=== PATIENT | male | born 1990 | race African-American/Black ===

== ENCOUNTER 2016-12-10 04:21 | Emergency (ER) | payer MEDICARE, MEDICAID ==
[~2016-12-10] VITALS: Ht 177.8 cm; Wt 136.1 kg
[~2016-12-10 04:21] MED LIST: ALBUAER3 IN
[2016-12-10] MEDS ORDERED: methylPREDNISolone SOD SUCC 125 MG/2 ML VL IV ONE (04:45)
[2016-12-10 04:47] LABS: Basophils # (auto) 0 uL; Basophils % (auto) 0.6 % (0.0-2.0); DEFINITIVE VIEW TRANSMISSION; Eosinophils # (auto) 0.3 uL; Eosinophils % (auto) 4.3 % (0.0-7.0); Hematocrit 47.9 % (41.0-53.0); Hemoglobin 15.1 g/dL (13.5-17.5); Lymphocytes # (auto) 1.4 uL; Lymphocytes % (auto) 19.9 % (10.0-50.0); Mean Corpuscular Hemoglobin 24.4 pg (28.0-32.0); Mean Corpuscular Hgb Conc. 31.6 g/dL (32.0-36.0); Mean Corpuscular Volume 77.1 fL (80.0-100.0); Mean Platelet Volume 8.1 fL (7.4-10.4); Monocytes # (auto) 0.4 uL; Monocytes % (auto) 5.5 % (0.0-12.0); Neutrophils # (auto) 5.1 uL; Neutrophils % (auto) 69.7 % (37.0-80.0); Platelet Count (auto) 429 10^3/uL (140-450); Red Cell Distribution Width 15.4 % (11.6-16.0); White Blood Cell 7.3 10^3/uL (4.4-10.8)
[2016-12-10 05:03] LABS: Albumin 3.7 g/dL (3.4-5.0); BUN/Creatinine Ratio 8.1; Calcium 8.4 mg/dL (8.5-10.1); Potassium 4.4 mmol/L (3.5-5.1)
[2016-12-10 05:06] LABS: Bilirubin, Total 0.3 mg/dL (0.2-1.0); Total Protein 7.9 g/dL (6.4-8.2)
[2016-12-10] MEDS ORDERED: IPRATROPIUM BROM 0.5 MG/2.5ML INH SOL NEB ONE (05:15)
[2016-12-10] MEDS ORDERED: ALBUTEROL SULF 2.5 MG/0.5ML(0.5%) NEB SOLN NEB ONE ×2 (05:15→10:00)
[2016-12-10 09:10] VITALS: BP 116/69
[2016-12-10] MEDS ORDERED: ACETAMINOPHEN 325 MG TAB PO ONE (10:00)
== END 2016-12-10 10:55 | disposition home or self-care (01) ==
LOC: EDBD 04:21 → ER 04:24
DX: J45.901 Unspecified asthma with (acute) exacerbation (principal); E66.9 Obesity, unspecified; Z68.41 Body mass index [BMI] 40.0-44.9, adult; Z76.0 Encounter for issue of repeat prescription
CPT/HCPCS: 36415; 71010; 80053; 85025; 93005; 94640; 96374; 99285; J2930

== ENCOUNTER 2016-12-21 18:28 | Emergency (ER) | payer MEDICARE, MEDICAID ==
[~2016-12-21] VITALS: Ht 177.8 cm; Wt 129.3 kg
[2016-12-21 18:35] VITALS: BP 156/104
[2016-12-21] MEDS ORDERED: ALBUTEROL SULF 2.5 MG/0.5ML(0.5%) NEB SOLN NEB ONE (20:15)
[2016-12-21] MEDS ORDERED: methylPREDNISolone SOD SUCC 125 MG/2 ML VL IM ONE (20:15)
[2016-12-21] MEDS ORDERED: IPRATROPIUM BROM 0.5 MG/2.5ML INH SOL NEB ONE (20:15)
== END 2016-12-21 20:52 | disposition home or self-care (01) ==
LOC: ER 18:28
DX: J45.901 Unspecified asthma with (acute) exacerbation (principal)
CPT/HCPCS: 94640; 96372; 99283; J2930

== ENCOUNTER 2017-07-15 08:58 | Emergency (ER) | payer MEDICARE, MEDICAID ==
[~2017-07-15] VITALS: Ht 177.8 cm; Wt 127.0 kg
[~2017-07-15 08:58] MED LIST changes: +DOXY-216 PO
[2017-07-15 09:20] VITALS: BP 139/89
== END 2017-07-15 10:15 | disposition home or self-care (01) ==
LOC: ER 08:58
DX: J45.909 Unspecified asthma, uncomplicated (principal)

== ENCOUNTER 2018-05-06 07:18 | Emergency (ER) | payer MEDICARE, MEDICAID ==
[~2018-05-06] VITALS: Ht 177.8 cm; Wt 136.1 kg
[2018-05-06 07:26] VITALS: BP 124/84
[2018-05-06] MEDS ORDERED: KETOROLAC TROMETH 60MG/2ML VIAL IM ONE (07:45)
[2018-05-06] MEDS ORDERED: methylPREDNISolone SOD SUCC 125 MG/2 ML VL IM ONE (07:45)
== END 2018-05-06 08:13 | disposition home or self-care (01) ==
LOC: ER 07:20
DX: M10.9 Gout, unspecified (principal); J45.909 Unspecified asthma, uncomplicated
CPT/HCPCS: 96372; 99284; J1885; J2930

== ENCOUNTER 2018-09-07 10:22 | Emergency (ER) | payer MEDICARE, MEDICAID ==
[~2018-09-07] VITALS: Ht 177.8 cm; Wt 142.9 kg
[2018-09-07 11:20] LABS: Basophils # (auto) 0.1 uL; Mean Corpuscular Hemoglobin 24.5 pg (28.0-32.0); Monocytes # (auto) 0.9 uL; Neutrophils # (auto) 3.3 uL; Red Cell Distribution Width 15.8 % (11.8-14.3)
[2018-09-07 11:22] LABS: Basophils % (auto) 1.5 % (0.0-2.0); Eosinophils # (auto) 0.3 uL; Eosinophils % (auto) 4.6 % (0.0-7.0); Hematocrit 50.4 % (41.0-53.0); Hemoglobin 16.1 g/dL (13.5-17.5); Lymphocytes # (auto) 2.6 uL; Lymphocytes % (auto) 36.2 % (10.0-50.0); Mean Corpuscular Volume 76.7 fL (80.0-100.0); Neutrophils % (auto) 45.7 % (37.0-80.0); Platelet Count (auto) 400 10^3/uL (140-450); Red Blood Cells 6.58 10^6/uL (4.5-5.90); White Blood Cell 7.1 10^3/uL (4.4-10.8)
[2018-09-07 12:08] VITALS: BP 112/69
[2018-09-07] MEDS ORDERED: KETOROLAC TROMETH 60MG/2ML VIAL IM ONE (12:30)
== END 2018-09-07 12:54 | disposition home or self-care (01) ==
LOC: ER 10:46
DX: M10.071 Idiopathic gout, right ankle and foot (principal); J45.909 Unspecified asthma, uncomplicated
CPT/HCPCS: 36415; 73630; 84550; 85025; 96372; 99284; J1885

== ENCOUNTER 2019-04-13 21:06 | Emergency (ER) | payer MEDICARE, MEDICAID ==
[~2019-04-13] VITALS: Ht 180.3 cm; Wt 148.8 kg
[2019-04-13] MEDS ORDERED: ALBUTEROL SULF 2.5 MG/0.5ML(0.5%) NEB SOLN NEB STA (21:20)
[2019-04-13 21:22] VITALS: BP 147/79
[2019-04-13] MEDS ORDERED: IPRATROPIUM BROM 0.5 MG/2.5ML INH SOL NEB ONE (21:30)
== END 2019-04-13 22:59 | disposition left against medical advice (07) ==
LOC: ER 21:07
DX: J45.909 Unspecified asthma, uncomplicated (principal); Z53.21 Procedure and treatment not carried out due to patient leaving prior to being seen by health care provider
CPT/HCPCS: 71046; 94640; J7611; J7644

== ENCOUNTER 2019-08-19 07:07 | Emergency (ER) | payer MEDICAID, MEDICARE ==
[~2019-08-19] VITALS: Ht 177.8 cm; Wt 142.9 kg
[~2019-08-19 07:07] MED LIST changes: -DOXY-216 PO; +DOXY-286 PO
[2019-08-19 07:43] VITALS: BP 132/64
[2019-08-19] MEDS ORDERED: methylPREDNISolone SOD SUCC 125 MG/2 ML VL IM ONE (08:15)
[2019-08-19] MEDS ORDERED: cefTRIAXone SOD 1,000 MG VL IM ONE (08:15)
== END 2019-08-19 09:29 | disposition home or self-care (01) ==
LOC: ER 07:07
DX: J20.9 Acute bronchitis, unspecified (principal); J03.90 Acute tonsillitis, unspecified; J45.909 Unspecified asthma, uncomplicated
CPT/HCPCS: 71046; 96372; 99283; J0696; J2930

== ENCOUNTER 2019-11-10 01:27 | Emergency (ER) | payer MEDICARE ==
[~2019-11-10] VITALS: Ht 177.8 cm; Wt 143.8 kg
[2019-11-10] MEDS ORDERED: ALBUTEROL SULF 2.5 MG/0.5ML(0.5%) NEB SOLN NEB STA (01:34)
[2019-11-10] MEDS ORDERED: IPRATROPIUM BROM 0.5 MG/2.5ML INH SOL NEB ONE (01:45)
[2019-11-10] MEDS ORDERED: ALBUTEROL SULF 2.5 MG/0.5ML(0.5%) NEB SOLN NEB ONE (02:00)
[2019-11-10] MEDS ORDERED: methylPREDNISolone SOD SUCC 125 MG/2 ML VL IV ONE (02:15)
[2019-11-10 03:05] VITALS: BP 106/73
== END 2019-11-10 03:09 | disposition home or self-care (01) ==
LOC: ER 01:29
DX: J45.901 Unspecified asthma with (acute) exacerbation (principal); J01.90 Acute sinusitis, unspecified
CPT/HCPCS: 71045; 94640; 96374; 99283; J2930; J7644

== ENCOUNTER 2019-11-14 13:57 | Emergency (ER) | payer MEDICARE ==
[~2019-11-14] VITALS: Ht 177.8 cm; Wt 143.8 kg
[2019-11-14] MEDS ORDERED: cefTRIAXone SOD 1,000 MG VL IM ONE (15:30)
[2019-11-14] MEDS ORDERED: DexAMETHasone SOD PHOS 10MG/1ML VIAL INJ IM ONE (15:30)
[2019-11-14] MEDS ORDERED: DexAMETHasone SOD PHOS 10MG/1ML VIAL INJ ONE (15:39)
[2019-11-14] MEDS ORDERED: LIDOCAINE 2% (LOCAL ANESTH.) PF 5ml SDV ONE (15:39)
[2019-11-14] MEDS ORDERED: cefTRIAXone SOD 1,000 MG VL ONE (15:39)
[2019-11-14 15:40] VITALS: BP 140/80
== END 2019-11-14 16:02 | disposition home or self-care (01) ==
LOC: ER 14:02
DX: J06.9 Acute upper respiratory infection, unspecified (principal)
CPT/HCPCS: 96372; 99284; J0696; J1100; J2001

== ENCOUNTER 2020-02-10 10:46 | Emergency (ER) | payer MEDICARE ==
[~2020-02-10] VITALS: Ht 177.8 cm; Wt 143.8 kg
[2020-02-10 10:57] VITALS: BP 139/82
[2020-02-10] MEDS ORDERED: KETOROLAC TROMETH 60MG/2ML VIAL IM ONE (11:30)
== END 2020-02-10 12:16 | disposition home or self-care (01) ==
LOC: ER 10:46
DX: M10.9 Gout, unspecified (principal); J45.909 Unspecified asthma, uncomplicated
CPT/HCPCS: 96372; 99283; J1885

== ENCOUNTER 2020-02-13 08:50 | Emergency (ER) | payer MEDICARE ==
[~2020-02-13] VITALS: Ht 177.8 cm; Wt 143.8 kg
[2020-02-13 09:14] VITALS: BP 133/88
[2020-02-13] MEDS ORDERED: KETOROLAC TROMETH 60MG/2ML VIAL IM ONE (10:00)
[2020-02-13] MEDS ORDERED: methylPREDNISolone SOD SUCC 125 MG/2 ML VL IM ONE (10:00)
== END 2020-02-13 10:32 | disposition home or self-care (01) ==
LOC: ER 08:50
DX: M10.9 Gout, unspecified (principal); Z76.0 Encounter for issue of repeat prescription
CPT/HCPCS: 96372; 99284; J1885; J2930

== ENCOUNTER 2020-05-22 07:37 | Emergency (ER) | payer MEDICARE ==
[~2020-05-22] VITALS: Ht 177.8 cm; Wt 142.9 kg
[2020-05-22 07:49] VITALS: BP 125/83
[2020-05-22] MEDS ORDERED: KETOROLAC TROMETH 60MG/2ML VIAL IM ONE (08:15)
[2020-05-22] MEDS ORDERED: methylPREDNISolone SOD SUCC 125 MG/2 ML VL IM ONE (08:15)
== END 2020-05-22 08:51 | disposition home or self-care (01) ==
LOC: ER 07:37
DX: M10.9 Gout, unspecified (principal); M79.672 Pain in left foot; J45.909 Unspecified asthma, uncomplicated; Z79.899 Other long term (current) drug therapy
CPT/HCPCS: 96372; 99284; J1885; J2930

== ENCOUNTER 2021-01-08 17:34 | Emergency (ER) | payer MEDICARE ==
[~2021-01-08] VITALS: Ht 177.8 cm; Wt 152.0 kg
[2021-01-08 17:47] VITALS: BP 150/90
[2021-01-08] MEDS ORDERED: KETOROLAC TROMETH 60MG/2ML VIAL IM ONE (22:45)
== END 2021-01-08 23:37 | disposition home or self-care (01) ==
LOC: EDBD 17:34 → ER 17:34
DX: M54.31 Sciatica, right side (principal); J45.909 Unspecified asthma, uncomplicated; M10.9 Gout, unspecified; Z79.899 Other long term (current) drug therapy
CPT/HCPCS: 72192; 96372; 99284; J1885

== ENCOUNTER 2021-09-03 03:30 | Emergency (ER) | payer MEDICARE ==
[2021-09-03 03:30] VITALS: BP 0/0
[2021-09-03] MEDS ORDERED: EPINEPHrine HCL 1 MG/10 ML SYRG IV ONE (03:35)
== END 2021-09-03 04:37 ==
LOC: EDBD 03:30 → ER 03:34
DX: I46.9 Cardiac arrest, cause unspecified (principal); J45.909 Unspecified asthma, uncomplicated; M10.9 Gout, unspecified; Z79.2 Long term (current) use of antibiotics; Z79.899 Other long term (current) drug therapy
CPT/HCPCS: 92950; 99285; J0171